=== PATIENT | male | born 2000 | race African-American/Black ===

== ENCOUNTER 2019-05-13 07:03 | Emergency (ER) | payer OTHER ==
[~2019-05-13] VITALS: Ht 182.9 cm; Wt 82.3 kg
[2019-05-13 07:04] VITALS: BP 156/68
--- NOTE | 2019-05-13 07:38 | REP ---
Clinical: Trauma. Technique: AP, lateral, bilateral oblique views of the right ankle. Findings: Lateral swelling consist with inversion injury. No acute fracture or dislocation. Skeletal structures, joint spaces, and ankle mortise are intact. Impression: Lateral swelling. No acute fracture. Electronically Signed by Berny Solis MD 05/13/2019 07:30 A
[2019-05-13] MEDS: IBUPROFEN 800 MG TAB PO ONE (07:52)
== END 2019-05-13 08:16 | disposition home or self-care (01) ==
LOC: M ED 07:03
DX: S93.401A Sprain of unspecified ligament of right ankle, initial encounter (principal); X50.9XXA Other and unspecified overexertion or strenuous movements or postures, initial encounter; Y92.009 Unspecified place in unspecified non-institutional (private) residence as the place of occurrence of the external cause; Y93.89 Activity, other specified; Y99.8 Other external cause status

== ENCOUNTER 2019-09-23 08:54 | Emergency (ER) | payer OTHER ==
[~2019-09-23] VITALS: Ht 182.9 cm; Wt 82.8 kg
[2019-09-23 13:01] VITALS: BP 128/80
== END 2019-09-23 13:51 | disposition home or self-care (01) ==
LOC: EDBD 08:54 → M ED 08:54
DX: T68.XXXA Hypothermia, initial encounter (principal); X31.XXXA Exposure to excessive natural cold, initial encounter; Y92.138 Other place on military base as the place of occurrence of the external cause; Y93.11 Activity, swimming; Y99.1 Military activity